=== PATIENT | female | born 1970 | race Caucasian/White ===

== ENCOUNTER 2021-01-26 04:06 | Observation (INO) | payer OTHER ==
[~2021-01-26] VITALS: Ht 175.3 cm; Wt 49.4 kg
--- NOTE | ~2021-01-26 | O ---
[facility] [place] [address] OPERATIVE REPORT Name: DE GRAY Room #: 446-P [facility] Jed Yuan#: [id number] Admission: 01/26/21 Attend Phys: Praneeth Solorzano MD Discharge: 01/27/21 Date of : 68 Report #: [id number] THIS REPORT FOR: cc: Desiree Lion Amy M. FNP-C Haggard, Kent L MD ~ PREOPERATIVE DIAGNOSIS: A 7 mm mid right ureteral stone. POSTOPERATIVE DIAGNOSIS: ureteral stone. PROCEDURES: Cystoscopy, bilateral retrograde pyelograms, right ureteroscopy and right ureteral stent placement. STAFF SURGEON: Leandro Harman MD METAL ANNEALER: None. ANESTHESIA: General. ESTIMATED BLOOD LOSS: None. COMPLICATIONS: None. SPECIMENS: None. DRAINS: 26 cm x 6-Bulgarian right ureteral stent. INDICATIONS: The patient is a 50-year-old white female with no history of kidney stones, who was reportedly constipated last week, she had some vomiting on Saturday, bowel movement yesterday, began feeling lightheaded and generally ill. She presented to [facility]. Denied any flank pain, dysuria or gross hematuria. CT scan was performed, showed no sign of hydronephrosis. There was calcification appeared to be in the mid right ureter and a linear calcification near the ureter as well. No hydronephrosis was seen; however, the concern for ureteral stone, she was referred for evaluation. She was counseled regarding treatment options and elected for definitive cystoscopy, right retrograde pyelogram, right ureteroscopy, possible holmium laser lithotripsy, possible placement of a right ureteral stent. After the risks and benefits of the procedure were explained, informed consent was obtained. DESCRIPTION OF PROCEDURE: The patient was taken to the operating room comfortably placed in the dorsal lithotomy position. She was up to date on antibiotic therapy. She was sterilely prepped and draped in standard fashion. Appropriate timeout was carried out and all were in agreement. A 22-Bulgarian cystoscope with the obturator in place was blindly inserted into the urethra. [address] [address] OPERATIVE REPORT Name: DE GRAY Room #: 446-P [facility] Jed Yuan#: [id number] Admission: 01/26/21 Attend Phys: Praneeth Solorzano MD Discharge: 01/27/21 Date of : 68 Report #: [id number] Obturator was removed, draining clear vitaliy colored urine. Bladder was systematically viewed. Both ureteral orifices identified normal. No bladder calculi seen or foreign bodies observed. The mucosa was smooth. There was some inflammatory debris within the bladder; however, a 5-Bulgarian open-ended catheter was placed in the right ureteral orifice and retrograde pyelogram showing normal filling and drainage of the right collecting system, questionable filling defect above the iliac vessels, but did drain without any impedance. A 5-Bulgarian open-ended catheter was placed in the left ureteral orifice and a retrograde pyelogram performed showing normal filling and drainage of the left collecting system. A 0.035 Glidewire was placed at the right ureter and a 11-Bulgarian obturator was used to gently dilate the transmural ureter. An 8-Bulgarian semirigid scope was placed into the urethra up the above the iliac vessels semirigid scope was removed and an 8-Bulgarian flexible scope was placed over the guidewire to the mid ureter. The guidewire was removed. The remaining part of the collecting system was reviewed with a flexible scope up into the kidney. No stones were identified and did have some inflammatory debris. Because the right kidney was manipulated, elected to place a stent. A 0.035 Glidewire was placed through the flexible scope. The flexible scope was removed. A 26 cm x 6-Bulgarian right ureteral stent was put in place, it went through the renal pelvis the lower pole. Good coil in the bladder. The bladder was drained, cystoscope was removed. String was left attached to the outside labia majora with a Tegaderm. She was extubated in the operating room, transferred to [facility] with assistance, went to recovery in stable condition, may remove her stent in next Saturday. By: [id number] Leandro Harman MD /nt
[2021-01-26 13:41] LABS: HEMATOCRIT 28.9 % (37.0-47.0); HEMOGLOBIN 10.2 gm/dL (12.0-15.0); MCH 29.5 pg (26.0-34.0); MCHC 35.3 g/dL (28.0-37.0); MCV 83.7 fL (80.0-100.0); RBC 3.45 mil/uL (4.20-5.00); WBC 10.9 thou/uL (4.0-11.0)
[2021-01-26 13:49] LABS: CALCIUM 8.8 mg/dL (8.5-10.1); CREATININE 1.2 mg/dL (0.6-1.0); POTASSIUM 4.2 mmol/L (3.5-5.1)
--- NOTE | 2021-01-26 14:20 | NUR ---
PT KEEP NPO SINCE TRANSFER FROM [facility] FOR UROLOGY CONSULT. PAGED UROLOGY AND DR BULLARD SEEN HER. PT IS A&O*4, NRS ON TELE, RA, NO COMPLIAN ABOUT PAIN. BS CHECKED AT 11:30 WAS 202 BUT NO ORDER FOR INSULIN DUE TO NPO. FLUID HAS BEEN KEPT GOING AT 80ML/HR. IV PROTONIC GIVEN THIS MORNING. COVID NOW SENT AT 14:05 ON 01/26 AND RESULT IS IN PENDING. WILL KEEP MONITOR PATIENT SAFETY AND TRANSFER PATIENT TO .
[2021-01-26 20:00] VITALS: BP 127/64; BP 128/78
[2021-01-27] VITALS: BP 109/66
[2021-01-27 10:10] LABS: ALBUMIN 2.5 g/dL (3.4-5.0); CALCIUM 8.9 mg/dL (8.5-10.1); PHOSPHORUS 3.1 mg/dL (2.6-4.7); POTASSIUM 4.2 mmol/L (3.5-5.1)
[2021-01-27 11:46] VITALS: BP 109/66
--- NOTE | 2021-01-27 13:51 | NUR ---
RN went over all discharge teaching, all questions answered, discharged to home, IV out, and will be wheeled out in wheelchair.
== END 2021-01-27 14:30 | disposition home or self-care (01) ==
LOC: 4S 04:06 → 4W 04:06 → 4S 15:19
PROVIDERS: Hospitalist; Internal Medicine Nephrology; Physician Assistant; ADMIT Internal Medicine; ATTEND Internal Medicine
DX: N13.2 Hydronephrosis with renal and ureteral calculous obstruction (principal); Z20.822 Contact with and (suspected) exposure to COVID-19; E11.9 Type 2 diabetes mellitus without complications; N17.9 Acute kidney failure, unspecified; N39.0 Urinary tract infection, site not specified; Z79.899 Other long term (current) drug therapy; Z79.4 Long term (current) use of insulin
CPT/HCPCS: 10102; 50101; 51516; 51620; 51767; 56674; 56815; 57160; 58565; 62110; 62900; 70005